=== PATIENT | male | born 1965 | race Caucasian/White ===

== ENCOUNTER 2017-09-29 15:44 | Emergency (ER) | payer MEDICARE, MEDICAID ==
[~2017-09-29] VITALS: Ht 165.1 cm; Wt 90.0 kg
[2017-09-29 16:10] LABS: BASOPHILS % (AUTO) 0.3 % (0-1); EOSINOPHILS # (AUTO) 0.3 X10'3 (0-0.9); EOSINOPHILS % (AUTO) 2.7 % (0-6); HEMATOCRIT 47.3 % (42.0-52.0); HEMOGLOBIN 16.1 g/dl (14.0-17.9); LYMPHOCYTES # (AUTO) 2.2 X10'3 (1.1-4.8); LYMPHOCYTES % (AUTO) 21.4 % (21-51); MEAN CORPUSCULAR HEMOGLOBIN 30.4 PG (27.0-31.0); MEAN CORPUSCULAR HGB CONC 34.1 % (33.0-36.5); MEAN PLATELET VOLUME 8.3 FL (7.4-10.4); MONOCYTES # (AUTO) 0.6 X10'3 (0-0.9); MONOCYTES % (AUTO) 5.9 % (2-12); NEUTROPHILS # (AUTO) 7.3 X10'3 (1.8-7.7); NEUTROPHILS % (AUTO) 69.7 % (42-75); PLATELET COUNT 336 X10'3 (140-440); RED BLOOD COUNT 5.31 X10'6 (4.70-6.10); RED CELL DISTRIBUTION WIDTH 13.7 % (11.5-14.5); WHITE BLOOD COUNT 10.5 X10'3 (4.5-11.0)
[2017-09-29 16:25] LABS: ALANINE AMINOTRANSFERASE 22 U/L (12-78); ALBUMIN 4.3 G/DL (3.4-5.0); ALBUMIN/GLOBULIN RATIO 1.2 (1.1-1.5); ALKALINE PHOSPHATASE 79 IU/L (46-116); ANION GAP 12 (8-16); ASPARTATE AMINO TRANSFERASE 12 U/L (10-37); BILIRUBIN,TOTAL 0.5 MG/DL (0.1-1.0); BLOOD UREA NITROGEN 11 MG/DL (7-18); BUN/CREATININE RATIO 10.5 (5.4-32.0); CALCIUM 9.6 MG/DL (8.5-10.1); CHLORIDE 99 MMOL/L (99-107); CREATININE 1.05 MG/DL (0.60-1.10); GLUCOSE 282 MG/DL (70-104); SODIUM 132 MMOL/L (135-145); TOTAL CARBON DIOXIDE 21.5 MMOL/L (24-32); eGFR 75 ML/MIN
[2017-09-29 16:32] LABS: ETHANOL < 0.010 GM/DL (0.0-0.010)
[2017-09-29 16:43] LABS: CLARITY,URINE CLEAR (Clear); COLOR,URINE YELLOW (Yellow); GLUCOSE, URINE >=1000 mg/dl (Neg); KETONES,URINE TRACE mg/dl (Neg); LEUKOCYTE ESTERASE ,URINE NEGATIVE (Neg); NITRITES, URINE NEGATIVE (Neg); OCCULT BLOOD,URINE NEGATIVE (Neg); PH,URINE 6.5 (4.8-8.0); PROTEIN,URINE 100 mg/dl (Neg); UROBILINOGEN,URINE 0.2 E.U/dL (0.2-1.0)
[2017-09-29 16:44] LABS: UA COLLECTION TYPE CLN CATCH MIDSTREAM
[2017-09-29 16:51] LABS: BACTERIA,URINE NONE SEEN /HPF (Neg); RBC,URINE 0-2 /HPF (0-2); SQUAMOUS EPITHELIAL CELL,UR FEW /LPF (FEW); WBC,URINE 0-4 /HPF (0-4)
[2017-09-29 16:56] LABS: URINE AMPHETAMINE SCREEN NEGATIVE (Neg); URINE BARBITUATE SCREEN NEGATIVE (Neg); URINE BENZODIAZEPINES SCREEN NEGATIVE (Neg); URINE CANNABINOID SCREEN NEGATIVE (Neg); URINE COCAINE SCREEN NEGATIVE (Neg); URINE METHADONE SCREEN NEGATIVE (Neg); URINE OPIATE SCREEN NEGATIVE (Neg); URINE PHENCYCLIDINE SCREEN NEGATIVE (Neg)
[2017-09-29] MEDS ORDERED: synthroid PO (18:01)
[2017-09-29] MEDS ORDERED: QUIN10TA16 PO (18:01)
[2017-09-29] MEDS ORDERED: Lamotrigine PO (18:01)
[2017-09-29] MEDS ORDERED: NABU750T2 PO (18:01)
[2017-09-29] MEDS ORDERED: METO-384 PO (18:01)
[2017-09-29] MEDS ORDERED: GEMF600T3 PO (18:01)
[2017-09-29] MEDS ORDERED: DAPA10TA PO (18:01)
[2017-09-29] MEDS ORDERED: novolog (18:01)
[2017-09-29] MEDS ORDERED: NATE120T PO (18:01)
[2017-09-29] MEDS ORDERED: INSU100I25 SQ (18:01)
[2017-09-29] MEDS ORDERED: DIVA125T3 PO (18:01)
[2017-09-29] MEDS ORDERED: NIFE30TA95 PO (18:01)
[2017-09-29] MEDS ORDERED: SITA1TAB6 PO (18:01)
[2017-09-29] MEDS ORDERED: PANT40TA4 PO (18:01)
[2017-09-29] MEDS ORDERED: DIVA-81 PO (18:01)
[2017-09-29] MEDS ORDERED: LEVO137T24 PO (18:29)
[2017-09-29] MEDS ORDERED: LAMO25TA94 PO (18:30)
[2017-09-29] MEDS ORDERED: INSU100C4 SQ (18:33)
[2017-09-29] MEDS ORDERED: glucagon, human recombinant 1mg kit SUBCUT PRN (18:35)
[2017-09-29] MEDS ORDERED: MESSAGE TO PHARMACY PO ONE (18:35)
[2017-09-29] MEDS ORDERED: dextrose ORAL solution 15 GM/59 ML bottle PO PRN ×2 (18:35)
[2017-09-29] MEDS ORDERED: insulin Lispro (HumaLOG) vial - multi-dose SQ SCH (18:35)
[2017-09-29] MEDS ORDERED: dextrose 50%-water 50ml dispensing syringe IV PRN ×2 (18:35)
[2017-09-29 19:11] LABS: HEMOGLOBIN A1C 8.9 % (4.5-6.2)
[2017-09-29] MEDS ORDERED: Insulin Detemir pen SQ SCH (20:00)
[2017-09-29] MEDS ORDERED: (Dapagliflozin Propanediol (Farxiga) 1 TAB) PO SCH (21:00)
[2017-09-29] MEDS ORDERED: insulin glargine (Lantus) pen - multi-dose SQ SCH (21:00)
[2017-09-29] MEDS ORDERED: levoTHYROXINE 112mcg tablet PO SCH ×2 (21:00)
[2017-09-29] MEDS ORDERED: levoTHYROXINE 25mcg tablet PO SCH (21:00)
[2017-09-29] MEDS: lamoTRIgine 25mg tablet PO SCH (21:01)
[2017-09-29] MEDS: nateglinide 60mg tablet PO SCH (21:01)
[2017-09-29] MEDS: divalproex sod 250mg ER (24-hour) tablet PO SCH (21:01)
[2017-09-29] MEDS: gemfibrozil 600mg tablet PO SCH (21:57)
[2017-09-29] MEDS: insulin glargine (Lantus) pen - multi-dose SQ SCH (22:02)
[2017-09-29] MEDS: insulin Lispro (HumaLOG) vial - multi-dose SQ SCH (22:02)
[2017-09-30] MEDS ORDERED: non-formulary drug (Insulin Aspart (Novolog) 100 UNIT) SQ SCH (07:00)
[2017-09-30] MEDS ORDERED: SITAGLIPTIN PHOS PO SCH (08:00)
[2017-09-30] MEDS ORDERED: METFORMIN HCL PO SCH (08:00)
[2017-09-30] MEDS: levoTHYROXINE 112mcg tablet PO SCH (08:24)
[2017-09-30] MEDS: lisinopril 10 MG tablet PO SCH (08:24)
[2017-09-30] MEDS: NIFEdipine XL 30mg tablet PO SCH (08:24)
[2017-09-30] MEDS: levoTHYROXINE 25mcg tablet PO SCH (08:24)
[2017-09-30] MEDS: metoprolol succinate 25mg (24-HOUR) SR. Tablet PO SCH (08:24)
[2017-09-30] MEDS: gemfibrozil 600mg tablet PO SCH ×2 (08:24→21:33)
[2017-09-30] MEDS: pantoprazole 40mg Tablet.DR PO SCH (08:24)
[2017-09-30] MEDS: lamoTRIgine 25mg tablet PO SCH ×2 (08:24→21:33)
[2017-09-30] MEDS: nateglinide 60mg tablet PO SCH ×3 (08:25→21:38)
[2017-09-30] MEDS: divalproex sod 125mg tablet.DR PO SCH (08:25)
[2017-09-30] MEDS: insulin Lispro (HumaLOG) vial - multi-dose SQ SCH ×3 (08:45→19:22)
[2017-09-30] MEDS ORDERED: LORazepam 1 MG tablet PO ONE (13:25)
[2017-09-30] MEDS ORDERED: haloperidol lactate 5mg/ml inj IM ONE (13:25)
[2017-09-30] MEDS: insulin glargine (Lantus) pen - multi-dose SQ SCH (21:32)
[2017-09-30] MEDS: divalproex sod 250mg ER (24-hour) tablet PO SCH (21:33)
[2017-10-01] MEDS: nateglinide 60mg tablet PO SCH ×3 (08:17→20:32)
[2017-10-01] MEDS: gemfibrozil 600mg tablet PO SCH ×2 (08:18→20:32)
[2017-10-01] MEDS: pantoprazole 40mg Tablet.DR PO SCH (08:18)
[2017-10-01] MEDS: divalproex sod 125mg tablet.DR PO SCH (08:18)
[2017-10-01] MEDS: lisinopril 10 MG tablet PO SCH (08:18)
[2017-10-01] MEDS: lamoTRIgine 25mg tablet PO SCH ×2 (08:18→20:32)
[2017-10-01] MEDS: metoprolol succinate 25mg (24-HOUR) SR. Tablet PO SCH (08:20)
[2017-10-01] MEDS: NIFEdipine XL 30mg tablet PO SCH (08:20)
[2017-10-01] MEDS: levoTHYROXINE 25mcg tablet PO SCH (08:21)
[2017-10-01] MEDS: levoTHYROXINE 112mcg tablet PO SCH (08:21)
[2017-10-01] MEDS: divalproex sod 250mg ER (24-hour) tablet PO SCH (20:32)
[2017-10-01] MEDS: insulin glargine (Lantus) pen - multi-dose SQ SCH (20:38)
[2017-10-02 05:30] VITALS: BP 117/70
[2017-10-02] MEDS: levoTHYROXINE 112mcg tablet PO SCH (07:06)
[2017-10-02] MEDS: levoTHYROXINE 25mcg tablet PO SCH (07:06)
[2017-10-02] MEDS: metoprolol succinate 25mg (24-HOUR) SR. Tablet PO SCH (07:53)
[2017-10-02] MEDS: divalproex sod 125mg tablet.DR PO SCH (07:59)
[2017-10-02] MEDS: lamoTRIgine 25mg tablet PO SCH (08:00)
[2017-10-02] MEDS: gemfibrozil 600mg tablet PO SCH (08:00)
[2017-10-02] MEDS: nateglinide 60mg tablet PO SCH (08:03)
[2017-10-02] MEDS: pantoprazole 40mg Tablet.DR PO SCH (08:03)
[2017-10-02] MEDS: lisinopril 10 MG tablet PO SCH (08:03)
[2017-10-02] MEDS: NIFEdipine XL 30mg tablet PO SCH (08:03)
[2017-10-02] MEDS: insulin glargine (Lantus) pen - multi-dose SQ SCH (08:08)
== END 2017-10-02 11:10 | disposition home or self-care (01) ==
LOC: ER 15:44 → MERGE 15:56 → ER 15:56
DX: F79 Unspecified intellectual disabilities (principal); F31.9 Bipolar disorder, unspecified; F41.9 Anxiety disorder, unspecified; F17.200 Nicotine dependence, unspecified, uncomplicated; F15.10 Other stimulant abuse, uncomplicated; F12.10 Cannabis abuse, uncomplicated; F11.10 Opioid abuse, uncomplicated; E11.65 Type 2 diabetes mellitus with hyperglycemia; I10 Essential (primary) hypertension; E03.9 Hypothyroidism, unspecified; Z88.8 Allergy status to other drugs, medicaments and biological substances; Z79.899 Other long term (current) drug therapy; Z79.4 Long term (current) use of insulin; Z60.2 Problems related to living alone; Z56.0 Unemployment, unspecified
CPT/HCPCS: 36415; 80053; 80164; 80305; 80320; 81001; 82948; 83036; 84439; 84443; 85025; 96372; 99285; J1815

== ENCOUNTER 2018-02-08 21:51 | Emergency (ER) | payer MEDICARE, MEDICAID ==
[~2018-02-08] VITALS: Ht 185.4 cm; Wt 80.0 kg
[~2018-02-08 21:51] MED LIST: DAPA10TA PO; DIVA-81 PO; DIVA125T31 PO; GEMF600T4 PO; INSU100C4 SQ; INSU100I25 SQ; LAMO25TA94 PO; LEVO137T24 PO; METO-384 PO; NABU750T2 PO; NATE120T PO; NIFE30TA95 PO; PANT40TA4 PO; QUIN10TA16 PO; SITA1TAB6 PO
[2018-02-08] MEDS ORDERED: diazepam 5mg tablet PO ONE (22:35)
[2018-02-08] MEDS ORDERED: ketorolac tromethamine 15mg/ml inj. IM ONE (22:35)
[2018-02-08 23:04] VITALS: BP 171/99
[2018-02-08] MEDS ORDERED: METH-360 PO (23:55)
== END 2018-02-08 23:06 | disposition home or self-care (01) ==
LOC: ER 21:52
DX: M54.5 Low back pain (principal); M54.2 Cervicalgia; I10 Essential (primary) hypertension; E11.9 Type 2 diabetes mellitus without complications; G89.29 Other chronic pain; M79.7 Fibromyalgia; F15.90 Other stimulant use, unspecified, uncomplicated; Z56.0 Unemployment, unspecified; Z88.8 Allergy status to other drugs, medicaments and biological substances; Z79.899 Other long term (current) drug therapy; Z79.4 Long term (current) use of insulin
CPT/HCPCS: 96372; 99284; J1885

== ENCOUNTER 2018-02-10 20:03 | Emergency (ER) | payer MEDICARE, MEDICAID ==
[~2018-02-10] VITALS: Ht 185.4 cm; Wt 81.0 kg
[~2018-02-10 20:03] MED LIST changes: +METH-360 PO
[2018-02-10 20:06] VITALS: BP 144/90
== END 2018-02-10 21:20 | disposition home or self-care (01) ==
LOC: ER 20:03
DX: F20.9 Schizophrenia, unspecified (principal); I10 Essential (primary) hypertension; E11.9 Type 2 diabetes mellitus without complications; G89.29 Other chronic pain; F31.9 Bipolar disorder, unspecified; F15.90 Other stimulant use, unspecified, uncomplicated; Z88.8 Allergy status to other drugs, medicaments and biological substances; Z79.4 Long term (current) use of insulin; Z79.899 Other long term (current) drug therapy; Z60.2 Problems related to living alone; Z56.0 Unemployment, unspecified
CPT/HCPCS: 99284

== ENCOUNTER 2018-10-16 16:33 | Emergency (ER) | payer MEDICARE, MEDICAID ==
[~2018-10-16] VITALS: Ht 175.3 cm; Wt 90.9 kg
[~2018-10-16 16:33] MED LIST changes: -GEMF600T4 PO; +GEMF600T89 PO
[2018-10-16] MEDS ORDERED: insulin regular, human 10 units/0.1 ml syringe SQ ONE (17:30)
[2018-10-16] MEDS ORDERED: normal saline 1000ML IV soln IVB ONE (17:30)
[2018-10-16 17:45] VITALS: BP 152/90
[2018-10-16] MEDS ORDERED: insulin regular, human 10 units/0.1 ml syringe IV ONE (18:25)
== END 2018-10-16 18:53 | disposition home or self-care (01) ==
LOC: EEVIPCON 16:34 → ER 16:34
DX: S40.811A Abrasion of right upper arm, initial encounter (principal); E11.65 Type 2 diabetes mellitus with hyperglycemia; F10.129 Alcohol abuse with intoxication, unspecified; I10 Essential (primary) hypertension; G89.29 Other chronic pain; F15.90 Other stimulant use, unspecified, uncomplicated; Z88.8 Allergy status to other drugs, medicaments and biological substances; Z79.4 Long term (current) use of insulin; Z79.899 Other long term (current) drug therapy; Y90.9 Presence of alcohol in blood, level not specified; Z60.2 Problems related to living alone; Z56.0 Unemployment, unspecified; W18.39XA Other fall on same level, initial encounter; Y93.89 Activity, other specified; Y92.481 Parking lot as the place of occurrence of the external cause; Y99.8 Other external cause status
CPT/HCPCS: 82948; 96361; 96372; 96374; 99283; J1815; J7030

== ENCOUNTER 2019-04-21 23:56 | Emergency (ER) | payer MEDICAID, MEDICARE, OTHER ==
[~2019-04-21] VITALS: Ht 185.4 cm; Wt 84.1 kg
[2019-04-22] MEDS ORDERED: acetaminophen 325mg tablet PO ONE (00:10)
[2019-04-22 01:36] LABS: BASOPHILS # (AUTO) 0.1 X10'3 (0-0.2); BASOPHILS % (AUTO) 0.5 % (0-1); EOSINOPHILS # (AUTO) 0.1 X10'3 (0-0.9); EOSINOPHILS % (AUTO) 1.4 % (0-6); HEMATOCRIT 38.8 % (42.0-52.0); HEMOGLOBIN 13.6 g/dl (14.0-17.9); LYMPHOCYTES # (AUTO) 1.1 X10'3 (1.1-4.8); LYMPHOCYTES % (AUTO) 10.3 % (21-51); MEAN CORPUSCULAR HEMOGLOBIN 30.6 PG (27.0-31.0); MEAN CORPUSCULAR VOLUME 87.3 FL (78-98); MEAN PLATELET VOLUME 8.2 FL (7.4-10.4); MONOCYTES # (AUTO) 0.7 X10'3 (0-0.9); MONOCYTES % (AUTO) 6.8 % (2-12); NEUTROPHILS # (AUTO) 8.3 X10'3 (1.8-7.7); PLATELET COUNT 319 X10'3 (140-440); RED BLOOD COUNT 4.44 X10'6 (4.70-6.10); RED CELL DISTRIBUTION WIDTH 13.3 % (11.5-14.5); WHITE BLOOD COUNT 10.2 X10'3 (4.5-11.0)
[2019-04-22 02:17] LABS: ALANINE AMINOTRANSFERASE 31 U/L (12-78); ALBUMIN 3.5 G/DL (3.4-5.0); ALBUMIN/GLOBULIN RATIO 1.3 (1.1-1.5); ALKALINE PHOSPHATASE 75 IU/L (46-116); ANION GAP 3 (8-16); ASPARTATE AMINO TRANSFERASE 19 U/L (10-37); BILIRUBIN,TOTAL 0.4 MG/DL (0.1-1.0); BLOOD UREA NITROGEN 11 MG/DL (7-18); BUN/CREATININE RATIO 12.4 (5.4-32.0); CALCIUM 8.3 MG/DL (8.5-10.1); CHLORIDE 101 MMOL/L (99-107); CREATININE 0.89 MG/DL (0.60-1.10); GLUCOSE 268 MG/DL (70-104); POTASSIUM 4.1 MMOL/L (3.5-5.1); SODIUM 134 MMOL/L (135-145); TOTAL CARBON DIOXIDE 29.7 MMOL/L (24-32); TOTAL PROTEIN 6.2 G/DL (6.4-8.2); eGFR 90 ML/MIN
[2019-04-22 02:23] LABS: LIPASE 91 U/L (73-393); MAGNESIUM 1.6 MG/DL (1.5-2.4)
[2019-04-22 02:30] VITALS: BP 123/76
== END 2019-04-22 02:46 ==
LOC: ER 23:57
DX: R07.89 Other chest pain (principal); R11.0 Nausea; R06.02 Shortness of breath; I10 Essential (primary) hypertension; E11.9 Type 2 diabetes mellitus without complications; G89.29 Other chronic pain; F31.9 Bipolar disorder, unspecified; F20.9 Schizophrenia, unspecified; F15.90 Other stimulant use, unspecified, uncomplicated; Z98.890 Other specified postprocedural states; Z56.0 Unemployment, unspecified; Z59.0 Homelessness; Z88.8 Allergy status to other drugs, medicaments and biological substances; Z79.4 Long term (current) use of insulin; Z79.899 Other long term (current) drug therapy
CPT/HCPCS: 36415; 71045; 80053; 83690; 83735; 83880; 84484; 85025; 93005; 99284

== ENCOUNTER 2020-03-29 12:15 | Inpatient (IN) | payer OTHER ==
[~2020-03-29] VITALS: Ht 185.4 cm; Wt 72.7 kg
[~2020-03-29 12:15] MED LIST changes: +NABU-136 PO; -NABU750T2 PO; -PANT40TA4 PO; +PANT40TA54 PO
[2020-03-29] MEDS ORDERED: nitroGLYCERIN 0.4mg SUBLingual tab SL PRN ×2 (12:35→15:40)
[2020-03-29 12:53] LABS: BASOPHILS # (AUTO) 0.1 X10'3 (0-0.2); BASOPHILS % (AUTO) 0.8 % (0-1); EOSINOPHILS % (AUTO) 0.1 % (0-6); HEMATOCRIT 47.7 % (42.0-52.0); HEMOGLOBIN 15.8 g/dl (14.0-17.9); LYMPHOCYTES # (AUTO) 1.2 X10'3 (1.1-4.8); LYMPHOCYTES % (AUTO) 18.2 % (21-51); MEAN CORPUSCULAR HEMOGLOBIN 30.6 PG (27.0-31.0); MEAN CORPUSCULAR HGB CONC 33.1 g/dL (33.0-36.5); MEAN CORPUSCULAR VOLUME 92.3 FL (78-98); MEAN PLATELET VOLUME 8.8 FL (7.4-10.4); MONOCYTES # (AUTO) 0.3 X10'3 (0-0.9); MONOCYTES % (AUTO) 4.1 % (2-12); NEUTROPHILS # (AUTO) 5.1 X10'3 (1.8-7.7); NEUTROPHILS % (AUTO) 76.8 % (42-75); PLATELET COUNT 374 X10'3 (140-440); RED BLOOD COUNT 5.16 X10'6 (4.70-6.10); RED CELL DISTRIBUTION WIDTH 13.3 % (11.5-14.5); WHITE BLOOD COUNT 6.6 X10'3 (4.5-11.0)
[2020-03-29 13:08] LABS: D-DIMER 0.28 MG/L FEU (0-0.50); PARTIAL THROMBOPLASTIN TIME 28 SECONDS (22-32)
[2020-03-29 13:42] LABS: ALANINE AMINOTRANSFERASE 34 U/L (12-78); ALBUMIN 4.2 G/DL (3.4-5.0); ALBUMIN/GLOBULIN RATIO 1.2 (1.1-1.5); ALKALINE PHOSPHATASE 98 IU/L (46-116); ANION GAP 26 (8-16); ASPARTATE AMINO TRANSFERASE 17 U/L (10-37); BILIRUBIN,TOTAL 0.6 MG/DL (0.1-1.0); BLOOD UREA NITROGEN 25 MG/DL (7-18); BUN/CREATININE RATIO 16.2 (5.4-32.0); CALCIUM 9.4 MG/DL (8.5-10.1); CHLORIDE 92 MMOL/L (99-107); CREATININE 1.54 MG/DL (0.60-1.10); FERRITIN 477 NG/ML (26-388); LACTATE DEHYDROGENASE 192 U/L (85-227); MAGNESIUM 2.4 MG/DL (1.5-2.4); POTASSIUM 5.3 MMOL/L (3.5-5.1); SODIUM 130 MMOL/L (135-145); TOTAL PROTEIN 7.8 G/DL (6.4-8.2); eGFR 48 ML/MIN
[2020-03-29 13:45] LABS: GLUCOSE 483 MG/DL (70-104)
[2020-03-29] MEDS ORDERED: normal saline 1000ML IV soln IV ONE (13:50)
[2020-03-29 13:52] LABS: C-REACTIVE PROTEIN < 0.05 MG/DL (0.0-0.5)
[2020-03-29] MEDS ORDERED: insulin regular, human 10 units/0.1 ml syringe IV ONE (13:55)
[2020-03-29] MEDS ORDERED: potassium CL 20mEq in D5-1/2NS 1,000 ML IV PRN ×3 (14:00→18:20)
[2020-03-29] MEDS ORDERED: Insulin Reg/NS 100units/100mL 100 ML IV SCH ×2 (14:00→15:40)
[2020-03-29 14:16] LABS: PHOSPHORUS 5.7 MG/DL (2.3-4.5)
[2020-03-29 14:21] LABS: ABG BASE EXCESS -15.3 mmol/L (-2.0-2.0); ABG HCO3 9.1 mmol/L (22.0-26.0); ABG OXYGEN SATURATION 97.6 % (94-97); ABG PCO2 (T) 20.3 mmHg (35.0-48.0); ABG PO2 (T) 103.4 mmHg (75.0-100.0); ALLEN'S TEST POSITIVE; FCOHb 0.7 % (0.0-3.9); FMetHb 0.2 % (0.0-1.5); FO2Hb 96.7 % (94-97); TOTAL HEMOGLOBIN 16.1 G/dl (14.0-18.0)
[2020-03-29] MEDS: normal saline 1000ml 1,000 ML IV SCH ×5 (14:59→23:54)
[2020-03-29 15:22] LABS: CLARITY,URINE CLEAR (Clear); COLOR,URINE YELLOW (Yellow); GLUCOSE, URINE 500 mg/dl (Neg); KETONES,URINE >=80 mg/dl (Neg); LEUKOCYTE ESTERASE ,URINE NEGATIVE (Neg); NITRITES, URINE NEGATIVE (Neg); OCCULT BLOOD,URINE TRACE-LYSED (Neg); PH,URINE 5.5 (4.8-8.0); PROTEIN,URINE 30 mg/dl (Neg); UROBILINOGEN,URINE 0.2 E.U/dL (0.2-1.0)
[2020-03-29 15:25] LABS: UA COLLECTION TYPE CLN CATCH MIDSTREAM
[2020-03-29 15:27] LABS: BACTERIA,URINE NONE SEEN /HPF (Neg); MUCUS STRANDS FEW /LPF (Neg); RBC,URINE NONE SEEN /HPF (0-2); SQUAMOUS EPITHELIAL CELL,UR FEW /LPF (FEW); WBC,URINE NONE SEEN /HPF (0-4)
[2020-03-29] MEDS ORDERED: bisacodyl 10mg suppository rectal RC PRN (15:40)
[2020-03-29] MEDS ORDERED: mag hydrox/Alum hydrox/simeth 30ml oral suspension PO PRN (15:40)
[2020-03-29] MEDS ORDERED: magnesium 4gm in 100ml NS 100 ML IV PRN (15:40)
[2020-03-29] MEDS ORDERED: insulin regular, human U-100 3ml vial - multi-dose IV PRN (15:40)
[2020-03-29] MEDS ORDERED: magnesium Cl slow-release 64mg tablet PO PRN (15:40)
[2020-03-29] MEDS ORDERED: aminophylline 250mg/10ml inj. IV PRN (15:40)
[2020-03-29] MEDS ORDERED: morphine 2 MG/ML inj. syringe IV PRN ×2 (15:40)
[2020-03-29] MEDS ORDERED: regadenoson 0.4mg/5ml syringe IV PRN (15:40)
[2020-03-29] MEDS ORDERED: HYDROcodone/acetaminophen 5mg/325mg tablet PO PRN (15:40)
[2020-03-29] MEDS ORDERED: magnesium hydroxide 30ml (MOM) UD suspension PO PRN (15:40)
[2020-03-29] MEDS ORDERED: potassium CL 10mEq/100ml bag 100 ML IV PRN ×4 (15:40)
[2020-03-29] MEDS ORDERED: magnesium 2GM in 50ml NS 50 ML IV PRN (15:40)
[2020-03-29] MEDS ORDERED: acetaminophen 650mg rectal suppository RC PRN (15:40)
[2020-03-29] MEDS ORDERED: acetaminophen 325mg tablet PO PRN (15:40)
[2020-03-29] MEDS ORDERED: metoprolol tartrate 1mg/ml inj IV PRN (15:40)
[2020-03-29] MEDS ORDERED: HYDROcodone/acetaminophen 10/325mg tab PO PRN (15:40)
[2020-03-29] MEDS ORDERED: sodium phosphate inj. 30 MMOL in dextrose 5%-water 250 ML IV PRN (15:40)
[2020-03-29] MEDS ORDERED: Neutra Phos packet PO PRN (15:40)
[2020-03-29] MEDS ORDERED: sodium bicarbonate (8.4%) inj. 100 MEQ in dextrose 5% water 500ml 500 ML IV PRN (15:40)
[2020-03-29] MEDS ORDERED: normal saline 1000ml 1,000 ML IV SCH (15:40)
[2020-03-29] MEDS ORDERED: potassium Cl 20 mEq SR tablet PO PRN ×4 (15:40)
[2020-03-29] MEDS ORDERED: ondansetron/PF 4mg/2ml inj IV PRN (15:40)
[2020-03-29] MEDS ORDERED: sodium phosphate inj. 15 MMOL in dextrose 5%-water 250 ML IV PRN (15:40)
[2020-03-29] MEDS ORDERED: diphenhydrAMINE 25mg capsule PO PRN (15:40)
[2020-03-29] MEDS ORDERED: sodium bicarbonate (8.4%) inj. 50 MEQ in dextrose 5% water 500ml 250 ML IV PRN (15:40)
[2020-03-29 16:42] LABS: ALBUMIN 3.5 G/DL (3.4-5.0); ANION GAP 16 (8-16); BLOOD UREA NITROGEN 21 MG/DL (7-18); BUN/CREATININE RATIO 16.3 (5.4-32.0); CALCIUM 8.4 MG/DL (8.5-10.1); CHLORIDE 103 MMOL/L (99-107); CREATININE 1.29 MG/DL (0.60-1.10); GLUCOSE 246 MG/DL (70-104); SODIUM 136 MMOL/L (135-145); TOTAL CARBON DIOXIDE 17.5 MMOL/L (24-32); eGFR 58 ML/MIN
[2020-03-29 16:59] LABS: HEMOGLOBIN A1C 11.2 % (4.5-6.2)
--- NOTE | 2020-03-29 17:34 | NUR ---
BG 212. D5 0.45 NS initiated at 150ml/hr per protocol.
[2020-03-29] MEDS ORDERED: NOVRI SQ (17:53)
[2020-03-29] MEDS ORDERED: DIVA-74 PO (17:53)
[2020-03-29] MEDS ORDERED: DIVA-76 PO (17:53)
[2020-03-29] MEDS ORDERED: LISI10TA4 PO (17:53)
[2020-03-29] MEDS ORDERED: LEVO137T2 PO (17:53)
[2020-03-29] MEDS ORDERED: OMEP-50 PO (17:53)
[2020-03-29] MEDS ORDERED: AMLO5TAB16 PO (17:53)
[2020-03-29] MEDS ORDERED: ATOR40TA PO (17:53)
[2020-03-29] MEDS ORDERED: LANTUS SQ (17:53)
[2020-03-29 19:38] LABS: ALBUMIN 2.9 G/DL (3.4-5.0); ANION GAP 10 (8-16); BLOOD UREA NITROGEN 17 MG/DL (7-18); BUN/CREATININE RATIO 16.2 (5.4-32.0); CALCIUM 7.4 MG/DL (8.5-10.1); CHLORIDE 106 MMOL/L (99-107); CREATININE 1.05 MG/DL (0.60-1.10); GLUCOSE 193 MG/DL (70-104); POTASSIUM 3.7 MMOL/L (3.5-5.1); SODIUM 136 MMOL/L (135-145); TOTAL CARBON DIOXIDE 19.9 MMOL/L (24-32); eGFR 74 ML/MIN
[2020-03-29] MEDS: heparin, porcine 5000 units/ml vial SQ SCH (19:53)
[2020-03-29] MEDS ORDERED: K and/or MAG REPLACEMENT MC SCH (20:00)
[2020-03-29] MEDS: K and/or MAG REPLACEMENT MC SCH (20:00)
[2020-03-29] MEDS: acetaminophen 325mg tablet PO PRN (21:33)
[2020-03-29 22:00] VITALS: BP 126/79
--- NOTE | 2020-03-29 22:30 | NUR ---
PAGER ID: [phone] MESSAGE: [phone] Kimani Mendoza: DKA, 136 blood sugar now, 160 last hour with D5 .45 NS at 200 ml/hr and Insulin at 5. Can we lower insulin to 4 and increase fluids to 250? Basia LATHAM [id number]
[2020-03-29 22:48] LABS: ALBUMIN 3.1 G/DL (3.4-5.0); ANION GAP 10 (8-16); BLOOD UREA NITROGEN 16 MG/DL (7-18); BUN/CREATININE RATIO 16.2 (5.4-32.0); CALCIUM 7.8 MG/DL (8.5-10.1); CHLORIDE 106 MMOL/L (99-107); CREATININE 0.99 MG/DL (0.60-1.10); GLUCOSE 136 MG/DL (70-104); PHOSPHORUS 2.2 MG/DL (2.3-4.5); POTASSIUM 3.7 MMOL/L (3.5-5.1); SODIUM 137 MMOL/L (135-145); TOTAL CARBON DIOXIDE 21.3 MMOL/L (24-32); eGFR 79 ML/MIN
--- NOTE | 2020-03-29 23:00 | NUR ---
Patient in room PCU 3019. I have received report from Yovana LATHAM and had the opportunity to ask questions and assume patient care.
[2020-03-29] MEDS ORDERED: glucagon, human recombinant 1mg kit SUBCUT PRN (23:10)
[2020-03-29] MEDS ORDERED: MESSAGE TO PHARMACY PO ONE (23:10)
[2020-03-29] MEDS ORDERED: dextrose 50%-water 50ml dispensing syringe IV PRN ×2 (23:10)
[2020-03-29] MEDS ORDERED: dextrose ORAL solution 15 GM/59 ML bottle PO PRN ×2 (23:10)
[2020-03-29] MEDS ORDERED: insulin Lispro (HumaLOG) vial - multi-dose SQ SCH (23:10)
[2020-03-29] MEDS ORDERED: pantoprazole 40 MG vial IV ONE (23:25)
[2020-03-30] VITALS (16 sets, daily range): BP systolic 99–138; BP diastolic 64–95
[2020-03-30 01:16] LABS: BASOPHILS # (AUTO) 0.1 X10'3 (0-0.2); BASOPHILS % (AUTO) 1.1 % (0-1); EOSINOPHILS # (AUTO) 0.1 X10'3 (0-0.9); EOSINOPHILS % (AUTO) 1.3 % (0-6); HEMATOCRIT 36.8 % (42.0-52.0); HEMOGLOBIN 12.7 g/dl (14.0-17.9); LYMPHOCYTES % (AUTO) 29.7 % (21-51); MEAN CORPUSCULAR HEMOGLOBIN 30.9 PG (27.0-31.0); MEAN CORPUSCULAR HGB CONC 34.5 g/dL (33.0-36.5); MEAN CORPUSCULAR VOLUME 89.5 FL (78-98); MEAN PLATELET VOLUME 9.1 FL (7.4-10.4); MONOCYTES # (AUTO) 0.2 X10'3 (0-0.9); MONOCYTES % (AUTO) 3.5 % (2-12); NEUTROPHILS # (AUTO) 4.3 X10'3 (1.8-7.7); NEUTROPHILS % (AUTO) 64.4 % (42-75); PLATELET COUNT 288 X10'3 (140-440); RED BLOOD COUNT 4.11 X10'6 (4.70-6.10); RED CELL DISTRIBUTION WIDTH 12.6 % (11.5-14.5); WHITE BLOOD COUNT 6.6 X10'3 (4.5-11.0)
[2020-03-30 01:18] LABS: ALANINE AMINOTRANSFERASE 24 U/L (12-78); ALBUMIN 2.9 G/DL (3.4-5.0); ALBUMIN/GLOBULIN RATIO 1.2 (1.1-1.5); ALKALINE PHOSPHATASE 59 IU/L (46-116); ANION GAP 7 (8-16); ASPARTATE AMINO TRANSFERASE 14 U/L (10-37); BILIRUBIN,TOTAL 0.5 MG/DL (0.1-1.0); BLOOD UREA NITROGEN 15 MG/DL (7-18); CALCIUM 7.5 MG/DL (8.5-10.1); CHLORIDE 105 MMOL/L (99-107); CREATININE 0.94 MG/DL (0.60-1.10); GLUCOSE 159 MG/DL (70-104); POTASSIUM 3.8 MMOL/L (3.5-5.1); SODIUM 134 MMOL/L (135-145); TOTAL CARBON DIOXIDE 21.6 MMOL/L (24-32); TOTAL PROTEIN 5.3 G/DL (6.4-8.2); eGFR 84 ML/MIN
[2020-03-30 01:21] LABS: CHOL/HDL RATIO 2.6 (0.00-4.99); CHOLESTEROL 111 MG/DL (0-200); HDL CHOLESTEROL 43 MG/DL (35-60); LDL CHOLESTEROL 56 MG/DL (50-100); MAGNESIUM 1.8 MG/DL (1.5-2.4); PHOSPHORUS 2.6 MG/DL (2.3-4.5); TRIGLYCERIDES 63 MG/DL (20-135)
--- NOTE | 2020-03-30 05:09 | NUR ---
Student documentation: I have reviewed and agree with all interventions, assessments performed and medications administered documented by Cj hutchins RN .
--- NOTE | 2020-03-30 06:30 | NUR ---
Patient in room PCU 3019. I have received report from NOA Flor and had the opportunity to ask questions and assume patient care.
--- NOTE | 2020-03-30 06:34 | NUR ---
Problems reprioritized. Patient report given, questions answered & plan of care reviewed with Lori LATHAM.
[2020-03-30] MEDS: acetaminophen 325mg tablet PO PRN (07:13)
[2020-03-30] MEDS: heparin, porcine 5000 units/ml vial SQ SCH (07:18)
[2020-03-30] MEDS: normal saline 1000ml 1,000 ML IV SCH (07:24)
[2020-03-30] MEDS ORDERED: pantoprazole 40 MG vial IV SCH (08:00)
[2020-03-30] MEDS: K and/or MAG REPLACEMENT MC SCH (08:00)
[2020-03-30] MEDS ORDERED: amLODIPine 5mg tablet PO SCH (10:10)
[2020-03-30] MEDS ORDERED: levoTHYROXINE 112mcg tablet PO SCH (11:55)
[2020-03-30] MEDS ORDERED: levoTHYROXINE 25mcg tablet PO SCH (11:55)
[2020-03-30] MEDS ORDERED: SODI650T29 PO (12:22)
[2020-03-30] MEDS ORDERED: insulin glargine (Lantus) pen - multi-dose SQ SCH (21:00)
[2020-03-30] MEDS ORDERED: divalproex 250mg tablet, delayed-release PO SCH (21:00)
[2020-03-30] MEDS ORDERED: atorvastatin 20mg tablet PO SCH (21:00)
[2020-03-30] MEDS ORDERED: divalproex sodium 500mg tablet.DR PO SCH (21:00)
[2020-03-30] MEDS ORDERED: lisinopril 10 MG tablet PO SCH (21:00)
[2020-03-31] MEDS ORDERED: levoTHYROXINE 112mcg tablet PO SCH (08:00)
[2020-03-31] MEDS ORDERED: levoTHYROXINE 25mcg tablet PO SCH (08:00)
[2020-03-31] MEDS ORDERED: pantoprazole 40mg Tablet.DR PO SCH (08:00)
== END 2020-03-30 12:57 | DRG 638 ==
LOC: ER 12:15 → EEVIPCON 15:39 → ED HOLD 15:39 → PCU 3S 18:31
PROVIDERS: ADMIT Family Medicine; ATTEND Family Medicine
PROC: 4A02XM4 Measurement of Cardiac Total Activity, External Approach (ICD-10-PCS; principal; 2020-03-30)
PROC: 3E033HZ Introduction of Radioactive Substance into Peripheral Vein, Percutaneous Approach (ICD-10-PCS; 2020-03-30)
DX: E11.10 Type 2 diabetes mellitus with ketoacidosis without coma (principal); E87.4 Mixed disorder of acid-base balance; K21.9 Gastro-esophageal reflux disease without esophagitis; E03.9 Hypothyroidism, unspecified; E78.00 Pure hypercholesterolemia, unspecified; E78.5 Hyperlipidemia, unspecified; E86.0 Dehydration; F20.9 Schizophrenia, unspecified; F31.9 Bipolar disorder, unspecified; G40.909 Epilepsy, unspecified, not intractable, without status epilepticus; I10 Essential (primary) hypertension; M79.7 Fibromyalgia; N28.9 Disorder of kidney and ureter, unspecified; Z20.828 Contact with and (suspected) exposure to other viral communicable diseases; Z79.4 Long term (current) use of insulin; Z79.899 Other long term (current) drug therapy; Z87.891 Personal history of nicotine dependence
CPT/HCPCS: 36415; 36600; 71045; 78452; 80048; 80053; 80061; 81001; 82728; 82803; 82948; 83036; 83605; 83615; 83735; 83880; 84100; 84145; 84443; 84484; 85018; 85025; 85379; 85384; 85610; 85730; 86140; 87040; 87081; 87635; 93005; 93017; 93308; 96374; 99285; A9500; C9113; C9803; G0378; J0280; J1644; J1815; J2270; J2785; J3480; J7030

== ENCOUNTER 2020-04-16 03:19 | Inpatient (IN) | payer OTHER ==
[~2020-04-16] VITALS: Ht 185.4 cm; Wt 72.7 kg
[~2020-04-16 03:19] MED LIST changes: +AMLO5TAB16 PO; +ATOR40TA PO; -DAPA10TA PO; +DIVA-74 PO; +DIVA-76 PO; -DIVA-81 PO; -DIVA125T31 PO; -GEMF600T89 PO; -INSU100C4 SQ; -INSU100I25 SQ; -LAMO25TA94 PO; +LANTUS SQ; +LEVO137T2 PO; -LEVO137T24 PO; +LISI10TA4 PO; -METH-360 PO; -METO-384 PO; -NABU-136 PO; -NATE120T PO; -NIFE30TA95 PO; +NOVRI SQ; +OMEP-50 PO; -PANT40TA54 PO; -QUIN10TA16 PO; -SITA1TAB6 PO; +SODI650T29 PO
[2020-04-16] MEDS ORDERED: normal saline 1000ML IV soln IVB ONE (03:35)
[2020-04-16 03:43] LABS: BASOPHILS # (AUTO) 0.1 X10'3 (0-0.2); BASOPHILS % (AUTO) 0.7 % (0-1); EOSINOPHILS % (AUTO) 0.2 % (0-6); HEMOGLOBIN 14.1 g/dl (14.0-17.9); LYMPHOCYTES # (AUTO) 1.5 X10'3 (1.1-4.8); LYMPHOCYTES % (AUTO) 8.3 % (21-51); MEAN CORPUSCULAR HEMOGLOBIN 30.5 PG (27.0-31.0); MEAN CORPUSCULAR HGB CONC 31.2 g/dL (33.0-36.5); MEAN CORPUSCULAR VOLUME 97.8 FL (78-98); MEAN PLATELET VOLUME 8.6 FL (7.4-10.4); MONOCYTES # (AUTO) 0.7 X10'3 (0-0.9); MONOCYTES % (AUTO) 3.7 % (2-12); NEUTROPHILS # (AUTO) 15.6 X10'3 (1.8-7.7); NEUTROPHILS % (AUTO) 87.1 % (42-75); PLATELET COUNT 333 X10'3 (140-440); RED BLOOD COUNT 4.61 X10'6 (4.70-6.10); RED CELL DISTRIBUTION WIDTH 14.7 % (11.5-14.5); WHITE BLOOD COUNT 17.9 X10'3 (4.5-11.0)
[2020-04-16] MEDS ORDERED: insulin regular, human 10 units/0.1 ml syringe IV ONE (03:45)
[2020-04-16] MEDS ORDERED: Insulin Reg/NS 100units/100mL 100 ML IV PRN (03:45)
[2020-04-16 04:03] LABS: ALANINE AMINOTRANSFERASE 39 U/L (12-78); ALBUMIN 3.6 G/DL (3.4-5.0); ALBUMIN/GLOBULIN RATIO 1.2 (1.1-1.5); ALKALINE PHOSPHATASE 71 IU/L (46-116); ASPARTATE AMINO TRANSFERASE 22 U/L (10-37); BILIRUBIN,TOTAL 0.5 MG/DL (0.1-1.0); BLOOD UREA NITROGEN 28 MG/DL (7-18); BUN/CREATININE RATIO 13.7 (5.4-32.0); CALCIUM 8.5 MG/DL (8.5-10.1); CHLORIDE 95 MMOL/L (99-107); CREATININE 2.05 MG/DL (0.60-1.10); POTASSIUM 4.9 MMOL/L (3.5-5.1); SODIUM 134 MMOL/L (135-145); TOTAL PROTEIN 6.7 G/DL (6.4-8.2); TROPONIN I < 0.04 NG/ML (0.0-0.05); eGFR 34 ML/MIN
[2020-04-16 04:04] LABS: ANION GAP 34 (8-16)
[2020-04-16 04:07] LABS: GLUCOSE 662 MG/DL (70-104); TOTAL CARBON DIOXIDE < 5 MMOL/L (24-32)
[2020-04-16] MEDS ORDERED: LANTUS SQ (04:14)
[2020-04-16] MEDS ORDERED: POTASSIUM ACETATE IV ONE (04:20)
[2020-04-16] MEDS ORDERED: NORMAL SALINE IV ONE (04:20)
[2020-04-16 04:35] LABS: ABG BASE EXCESS -30.6 mmol/L (-2.0-2.0); ABG HCO3 3.2 mmol/L (22.0-26.0); ABG OXYGEN SATURATION 71.4 % (94-97); ABG PCO2 (T) 20.8 mmHg (35.0-48.0); ABG PO2 (T) 45.5 mmHg (75.0-100.0); ALLEN'S TEST POSITIVE; FCOHb 0.4 % (0.0-3.9); FMetHb 0.4 % (0.0-1.5); FO2Hb 70.8 % (94-97); TOTAL HEMOGLOBIN 14.7 G/dl (14.0-18.0)
[2020-04-16 04:50] LABS: CLARITY,URINE CLEAR (Clear); COLOR,URINE YELLOW (Yellow); GLUCOSE, URINE >=1000 mg/dl (Neg); KETONES,URINE >=80 mg/dl (Neg); LEUKOCYTE ESTERASE ,URINE NEGATIVE (Neg); NITRITES, URINE NEGATIVE (Neg); OCCULT BLOOD,URINE SMALL (Neg); PH,URINE 5.5 (4.8-8.0); PROTEIN,URINE 100 mg/dl (Neg); UROBILINOGEN,URINE 0.2 E.U/dL (0.2-1.0)
--- NOTE | 2020-04-16 04:53 | NUR ---
pt appears to be more alert and no longer lethargic as he was upon arrival. pt is requesting water, socks, more blankets, and is interative with staff when asked questions. guard at bedside. pt acting appropriate at this time. santiago garcía made aware of pt progress.
[2020-04-16 04:55] LABS: UA COLLECTION TYPE VOIDED
[2020-04-16 05:10] LABS: SQUAMOUS EPITHELIAL CELL,UR FEW /LPF (FEW); WBC,URINE 0-4 /HPF (0-4)
[2020-04-16] MEDS ORDERED: sodium phosphate inj. 15 MMOL in dextrose 5%-water 250 ML IV PRN (05:10)
[2020-04-16] MEDS ORDERED: magnesium 2GM in 50ml NS 50 ML IV PRN (05:10)
[2020-04-16] MEDS ORDERED: ipratropium/albuterol 3ml nebule NEB PRN (05:10)
[2020-04-16] MEDS ORDERED: sodium phosphate inj. 30 MMOL in dextrose 5%-water 250 ML IV PRN (05:10)
[2020-04-16] MEDS ORDERED: morphine 4 MG/ML inj SYRINge IV PRN (05:10)
[2020-04-16] MEDS ORDERED: magnesium Cl slow-release 64mg tablet PO PRN (05:10)
[2020-04-16] MEDS ORDERED: Neutra Phos packet PO PRN (05:10)
[2020-04-16] MEDS ORDERED: sodium bicarbonate (8.4%) inj. 50 MEQ in dextrose 5% water 500ml 1,000 ML IV PRN (05:10)
[2020-04-16] MEDS ORDERED: magnesium 4gm in 100ml NS 100 ML IV PRN (05:10)
[2020-04-16] MEDS ORDERED: sodium bicarbonate (8.4%) inj. 100 MEQ in dextrose 5% water 500ml 1,000 ML IV PRN (05:10)
[2020-04-16] MEDS ORDERED: potassium CL 10mEq/100ml bag 100 ML IV PRN ×4 (05:10)
[2020-04-16] MEDS ORDERED: ondansetron/PF 4mg/2ml inj IV PRN (05:10)
[2020-04-16] MEDS ORDERED: insulin regular, human U-100 3ml vial - multi-dose IV PRN (05:10)
[2020-04-16] MEDS ORDERED: acetaminophen 325mg tablet PO PRN ×2 (05:10)
[2020-04-16] MEDS ORDERED: potassium Cl 20 mEq SR tablet PO PRN ×4 (05:10)
[2020-04-16] MEDS ORDERED: potassium CL 20mEq in D5-1/2NS 1,000 ML IV PRN (05:10)
[2020-04-16 05:11] LABS: BACTERIA,URINE 1+ /HPF (Neg); FINE GRANULAR CAST 0-3 /LPF (NEGATIVE); HYALINE CASTS 0-3 /LPF (NEGATIVE); MUCUS STRANDS FEW /LPF (Neg)
[2020-04-16 05:28] LABS: D-DIMER 0.99 MG/L FEU (0-0.50)
[2020-04-16] MEDS: normal saline 1000ml 1,000 ML IV SCH ×6 (05:30→22:32)
[2020-04-16] MEDS: Insulin Reg/NS 100units/100mL 100 ML IV SCH ×2 (05:46→22:31)
[2020-04-16 06:17] LABS: ALBUMIN 3.9 G/DL (3.4-5.0); ANION GAP 30 (8-16); BLOOD UREA NITROGEN 26 MG/DL (7-18); BUN/CREATININE RATIO 14.8 (5.4-32.0); CALCIUM 8.2 MG/DL (8.5-10.1); CHLORIDE 100 MMOL/L (99-107); CREATININE 1.76 MG/DL (0.60-1.10); LACTATE DEHYDROGENASE 194 U/L (85-227); POTASSIUM 4.8 MMOL/L (3.5-5.1); SODIUM 135 MMOL/L (135-145); eGFR 41 ML/MIN
[2020-04-16 06:19] LABS: C-REACTIVE PROTEIN < 0.05 MG/DL (0.0-0.5)
[2020-04-16 06:20] LABS: GLUCOSE 500 MG/DL (70-104); TOTAL CARBON DIOXIDE 5.4 MMOL/L (24-32)
[2020-04-16] MEDS ORDERED: acetaminophen 325mg tablet PO ONE (07:10)
--- NOTE | 2020-04-16 07:10 | NUR ---
INSULIN DRIP DOWN TO 7U/HR
[2020-04-16] MEDS: levoTHYROXINE 112mcg tablet PO SCH (07:15)
[2020-04-16] MEDS: levoTHYROXINE 25mcg tablet PO SCH (07:15)
[2020-04-16] MEDS: enoxaparin 40mg/0.4ml syringe SUBCUT SCH (07:25)
[2020-04-16] MEDS: amLODIPine 5mg tablet PO SCH (07:25)
[2020-04-16] MEDS: pantoprazole 40mg Tablet.DR PO SCH (07:26)
[2020-04-16] MEDS: K, MAG and/or Phos replacement - Verify level? MC SCH ×2 (08:00→09:30)
[2020-04-16] MEDS ORDERED: K and/or MAG REPLACEMENT MC SCH (08:00)
--- NOTE | 2020-04-16 08:17 | NUR ---
insulin drip decreased to 4 uu
--- NOTE | 2020-04-16 08:34 | NUR ---
NEERAJ CASPER FROM [facility] [phone] CALLED TO GIVE US HX ON PT. PT HAS BEEN DX WITH SCHIZO/PARANOIA. HAS BEEN DEEMED UNFIT TO STAND TRIAL MULTIPLE TIMES. WILL HAVE BURST OUTS AND DIFFICULT TO DEAL WITH.
[2020-04-16 09:32] LABS: PHOSPHORUS 2.7 MG/DL (2.3-4.5)
[2020-04-16 10:31] LABS: ALBUMIN 3.4 G/DL (3.4-5.0); ANION GAP 18 (8-16); BLOOD UREA NITROGEN 22 MG/DL (7-18); BUN/CREATININE RATIO 16.4 (5.4-32.0); CALCIUM 8.2 MG/DL (8.5-10.1); CHLORIDE 106 MMOL/L (99-107); CREATININE 1.34 MG/DL (0.60-1.10); GLUCOSE 218 MG/DL (70-104); PHOSPHORUS 2.1 MG/DL (2.3-4.5); POTASSIUM 4.3 MMOL/L (3.5-5.1); SODIUM 138 MMOL/L (135-145); eGFR 56 ML/MIN
[2020-04-16 10:34] LABS: TOTAL CARBON DIOXIDE 13.7 MMOL/L (24-32)
[2020-04-16 12:21] LABS: ABG BASE EXCESS -11.7 mmol/L (-2.0-2.0); ABG HCO3 12.5 mmol/L (22.0-26.0); ABG OXYGEN SATURATION 98.3 % (94-97); ABG PCO2 (T) 24.8 mmHg (35.0-48.0); ABG PO2 (T) 120.3 mmHg (75.0-100.0); ALLEN'S TEST POSITIVE; FCOHb 0.3 % (0.0-3.9); FLOW 2 L/min; FMetHb 0.3 % (0.0-1.5); FO2Hb 97.7 % (94-97); TOTAL HEMOGLOBIN 13.7 G/dl (14.0-18.0)
[2020-04-16] MEDS: morphine 2 MG/ML inj. syringe IV PRN ×2 (14:30→22:39)
--- NOTE | 2020-04-16 15:15 | NUR ---
Lab at bedside for bnp draw.
[2020-04-16 15:50] LABS: ALBUMIN 3.2 G/DL (3.4-5.0); ANION GAP 10 (8-16); BLOOD UREA NITROGEN 18 MG/DL (7-18); BUN/CREATININE RATIO 15.5 (5.4-32.0); CALCIUM 7.9 MG/DL (8.5-10.1); CHLORIDE 107 MMOL/L (99-107); CREATININE 1.16 MG/DL (0.60-1.10); GLUCOSE 147 MG/DL (70-104); POTASSIUM 3.8 MMOL/L (3.5-5.1); SODIUM 136 MMOL/L (135-145); TOTAL CARBON DIOXIDE 18.9 MMOL/L (24-32); eGFR 66 ML/MIN
--- NOTE | 2020-04-16 16:59 | NUR ---
Dr. Ramírez at bedside. Verbal order to stop insulin drip. Carb Controlled diet ordered per Dr. Ramírez. Pt udpdated with plan of care.
[2020-04-16] MEDS ORDERED: MESSAGE TO PHARMACY PO ONE (18:50)
[2020-04-16] MEDS ORDERED: dextrose ORAL solution 15 GM/59 ML bottle PO PRN ×2 (18:50)
[2020-04-16] MEDS ORDERED: dextrose 50%-water 50ml dispensing syringe IV PRN ×2 (18:50)
[2020-04-16] MEDS ORDERED: glucagon, human recombinant 1mg kit SUBCUT PRN (18:50)
--- NOTE | 2020-04-16 18:53 | NUR ---
Insulin GTT stopped on patient. Placed orders per DKA protocol to complete protocol, administration CC diet and subq insulin and labs to verify patient remains out of DKA. Will receive patient and continue to monitor.
[2020-04-16 19:20] VITALS: BP 123/69
--- NOTE | 2020-04-16 19:42 | NUR ---
Upon transfer and orientation to patient room and plan of care. Patient refused Telemetry monitoring. Staff nurse, Charge and Officer provided education on value and importance of telemetry monitoring during length of stay. Patient continued to adamantly refused telemetry monitoring. Noncompliance care plan will be added to patient plan of care.
[2020-04-16 20:10] LABS: ALBUMIN 3.2 G/DL (3.4-5.0); ANION GAP 11 (8-16); BLOOD UREA NITROGEN 17 MG/DL (7-18); BUN/CREATININE RATIO 14.9 (5.4-32.0); CHLORIDE 105 MMOL/L (99-107); CREATININE 1.14 MG/DL (0.60-1.10); GLUCOSE 143 MG/DL (70-104); PHOSPHORUS 2.3 MG/DL (2.3-4.5); POTASSIUM 3.9 MMOL/L (3.5-5.1); SODIUM 136 MMOL/L (135-145); TOTAL CARBON DIOXIDE 19.8 MMOL/L (24-32); eGFR 67 ML/MIN
--- NOTE | 2020-04-16 20:43 | NUR ---
Notified MD about pt labs and resolved DKA. Dr Almeida stated to proceed as usual. Will administer insulin subq and lantus subq per hyperglycemia protocol and continue to monitor will change NS fluid orders to 100 ml / hr.
[2020-04-16] MEDS: insulin Lispro (HumaLOG) vial - multi-dose SQ SCH ×2 (20:53→23:10)
[2020-04-16] MEDS ORDERED: atorvastatin 20mg tablet PO SCH (21:00)
[2020-04-16] MEDS ORDERED: lisinopril 10 MG tablet PO SCH (21:00)
[2020-04-16] MEDS ORDERED: insulin glargine (Lantus) pen - multi-dose SQ SCH (21:00)
[2020-04-16 23:00] VITALS: BP 104/58
[2020-04-17] MEDS ORDERED: normal saline 1000ml 1,000 ML IV SCH (00:15)
[2020-04-17 06:00] VITALS: BP 99/64
--- NOTE | 2020-04-17 06:35 | NUR ---
Problems reprioritized. Patient report given, questions answered & plan of care reviewed with Gil LATHAM.
[2020-04-17 07:06] LABS: BASOPHILS % (AUTO) 0.5 % (0-1); EOSINOPHILS % (AUTO) 0.5 % (0-6); HEMATOCRIT 34.2 % (42.0-52.0); HEMOGLOBIN 11.7 g/dl (14.0-17.9); LYMPHOCYTES # (AUTO) 0.9 X10'3 (1.1-4.8); LYMPHOCYTES % (AUTO) 14.3 % (21-51); MEAN CORPUSCULAR HEMOGLOBIN 30.8 PG (27.0-31.0); MEAN CORPUSCULAR HGB CONC 34.3 g/dL (33.0-36.5); MEAN CORPUSCULAR VOLUME 89.9 FL (78-98); MEAN PLATELET VOLUME 7.9 FL (7.4-10.4); MONOCYTES # (AUTO) 0.4 X10'3 (0-0.9); MONOCYTES % (AUTO) 5.8 % (2-12); NEUTROPHILS # (AUTO) 4.8 X10'3 (1.8-7.7); NEUTROPHILS % (AUTO) 78.9 % (42-75); PLATELET COUNT 229 X10'3 (140-440); WHITE BLOOD COUNT 6.1 X10'3 (4.5-11.0)
[2020-04-17 07:23] LABS: ALANINE AMINOTRANSFERASE 32 U/L (12-78); ALBUMIN 2.8 G/DL (3.4-5.0); ALBUMIN/GLOBULIN RATIO 1.2 (1.1-1.5); ALKALINE PHOSPHATASE 50 IU/L (46-116); ANION GAP 7 (8-16); ASPARTATE AMINO TRANSFERASE 16 U/L (10-37); BILIRUBIN,TOTAL 0.6 MG/DL (0.1-1.0); BLOOD UREA NITROGEN 13 MG/DL (7-18); BUN/CREATININE RATIO 14.4 (5.4-32.0); CALCIUM 8.1 MG/DL (8.5-10.1); CHLORIDE 104 MMOL/L (99-107); GLUCOSE 207 MG/DL (70-104); MAGNESIUM 1.7 MG/DL (1.5-2.4); PHOSPHORUS 1.6 MG/DL (2.3-4.5); POTASSIUM 3.4 MMOL/L (3.5-5.1); SODIUM 134 MMOL/L (135-145); TOTAL CARBON DIOXIDE 23.1 MMOL/L (24-32); TOTAL PROTEIN 5.2 G/DL (6.4-8.2); eGFR 89 ML/MIN
[2020-04-17] MEDS: levoTHYROXINE 25mcg tablet PO SCH (07:44)
[2020-04-17] MEDS: levoTHYROXINE 112mcg tablet PO SCH (07:44)
[2020-04-17] MEDS: K, MAG and/or Phos replacement - Verify level? MC SCH (08:00)
[2020-04-17] MEDS: insulin Lispro (HumaLOG) vial - multi-dose SQ SCH (09:19)
[2020-04-17] MEDS: enoxaparin 40mg/0.4ml syringe SUBCUT SCH (09:20)
[2020-04-17] MEDS: pantoprazole 40mg Tablet.DR PO SCH (09:20)
[2020-04-17] MEDS: amLODIPine 5mg tablet PO SCH (09:35)
[2020-04-17 10:00] VITALS: BP 90/52
[2020-04-17] MEDS ORDERED: FLU VACC QS2020-21(6MOS UP)/PF 60 MCG/0.5 ML SYRINGE IMVAC ONE (10:00)
[2020-04-17] MEDS ORDERED: pneumococcal 23-VAL P-sac vacc 25 mcg/0.5ml vial IMVAC ONE (10:00)
== END 2020-04-17 11:50 | DRG 177 ==
LOC: ER 03:19 → EEVIPCON 03:19 → ED HOLD 05:06 → UNDOADMIN 05:06 → ED HOLD 16:16 → ORTHO 4S 18:50 → UNDODISIN 04-17 11:50
PROVIDERS: ADMIT Internal Medicine Critical Care Medicine; ATTEND Internal Medicine Critical Care Medicine
PROC: 3E02340 Introduction of Influenza Vaccine into Muscle, Percutaneous Approach (ICD-10-PCS; principal; 2020-04-17)
PROC: 3E0234Z Introduction of Serum, Toxoid and Vaccine into Muscle, Percutaneous Approach (ICD-10-PCS; 2020-04-17)
DX: U07.1 COVID-19 (principal); E10.10 Type 1 diabetes mellitus with ketoacidosis without coma; N17.9 Acute kidney failure, unspecified; D72.829 Elevated white blood cell count, unspecified; E03.9 Hypothyroidism, unspecified; E78.00 Pure hypercholesterolemia, unspecified; F17.210 Nicotine dependence, cigarettes, uncomplicated; F20.9 Schizophrenia, unspecified; F31.9 Bipolar disorder, unspecified; I10 Essential (primary) hypertension; M79.7 Fibromyalgia; Z79.4 Long term (current) use of insulin; Z79.899 Other long term (current) drug therapy; Z91.14 Patient's other noncompliance with medication regimen; Z23 Encounter for immunization
CPT/HCPCS: 36415; 36600; 71045; 80048; 80053; 81001; 82803; 82948; 83605; 83615; 83735; 83880; 84100; 84145; 84484; 85018; 85025; 85379; 86140; 87040; 87081; 87635; 93005; 94760; 96365; 96375; 99291; C9803; G0378; J1650; J1815; J2270; J7030